=== PATIENT | male | born 1950 | race Hispanic/Latino ===

== ENCOUNTER 2021-11-14 10:33 | Observation (INO) | payer MEDICARE ==
--- NOTE | 2021-11-13 10:52 | Anesthesia Consultation ---
<ERVIN MUNOZ - Last Filed: 11/13/21 10:48> Anesthesia Consult and Med Hx Date of service: 11/13/21 - Airway Anesthetic Teeth Evaluation: Good ROM Head & Neck: Adequate (Limited ROM-rotation and extension.. without Pain. Cervical Fusion) Mental/Hyoid Distance: Adequate Mallampati Class: Class II Intubation Access Assessment: Good - Pulmonary Exam CTA: Yes - Cardiac Exam Cardiac Exam: RRR (holosystolic murmur noted. Echo report requested) - Pre-Operative Health Status ASA Pre-Surgery Classification: ASA3 Proposed Anesthetic Plan: General - Pre-Anesthesia Comment Pre-Anesthesia Comments: Patient requests GA doesnot want regional - Pulmonary Hx Smoking: No Hx Sleep Apnea: No (COSME PRE SCREEN HIGH RISK) - Cardiovascular System Hx Hypertension: Yes (X 15 YRS) Hx Heart Murmur: Yes (NEGATIVE CARDIC WORKUP PER PT) - Central Nervous System Hx Back Pain: Yes (NECK AND BACK PAIN) Hx Psychiatric Problems: No - Hematic Hx Anemia: No - Other Systems Hx Cancer: No - Additional Comments Anesthesia Medical History Comments: history of post op nausea and vomiting <JENNI BASURTO - Last Filed: 11/14/21 11:25> Anesthesia Consult and Med Hx - Pre-Operative Health Status ASA Pre-Surgery Classification: ASA3 Proposed Anesthetic Plan: General - Additional Comments Anesthesia Medical History Comments: Examined in PAT 11/13/21 and immediately prior to procedure. Systolic murmur noted on cardiac exam. TTE 10/2020 notes mild w/ normal LV function. Patient is asymptomatic, has excellent functional capacity (bikes several miles at a time), and has no signs of decompensation.
[2021-11-13 11:17] LABS: Hematocrit 40.1 % (35.5-45.6); Hemoglobin 13.8 gm/dl (11.8-15.2); Mean Corpuscular HGB Conc 35 % (32-34); Mean Corpuscular Volume 99 fl (84-94); Platelet Count 151 K/mm3 (140-440); Red Blood Count 4.05 M/mm3 (3.65-5.03); Red Cell Distribution Width 12.7 % (13.2-15.2)
[2021-11-13 11:32] LABS: Alanine Aminotransferase 26 units/L (7-56); Albumin 4.3 g/dL (3.9-5); BUN/Creatinine Ratio 29; Blood Urea Nitrogen 26 mg/dL (9-20); Calcium 9.6 mg/dL (8.4-10.2); Hemolysis Index 20
[~2021-11-14 10:33] MED LIST: BACTERIOSTATIC SODIUM CHLORIDE 0.9% 30 ML VIAL INFILTRATI ONE; LACTATED RINGERS 1,000 ML IV SCH; MIDAZOLAM 2 MG/2 ML INJ IV NR; SCOPOLAMINE TRANSDERMAL PATCH 72 HR TD NR
[2021-11-14] MEDS ORDERED: HYDROcodone/ACETAMINOPHEN 5-325 MG TAB PO PRN (11:29)
[2021-11-14] MEDS ORDERED: ONDANSETRON 4 MG/2 ML INJ IV PRN ×2 (11:29→15:00)
[2021-11-14] MEDS ORDERED: HYDROmorphone 1 MG/1 ML INJ IV PRN (11:29)
--- NOTE | 2021-11-14 11:29 | Anesthesia Day of Surgery ---
Anesthesia Day of Surgery - Day of Surgery Patient Examined: Yes Patient H&P Reviewed: Yes Patient is NPO: Yes Beta Blockers: Yes
[2021-11-14] MEDS ORDERED: SODIUM CHLORIDE 0.9% 500 ML 500 ML IV SCH (11:51)
[2021-11-14] MEDS ORDERED: propofoL 200 MG/20 ML VIAL IV ONE (11:53)
[2021-11-14] MEDS ORDERED: LIDOCAINE PF 100 MG/5 ML (CARDIAC SYRINGE) IV ONE (11:53)
[2021-11-14] MEDS ORDERED: dexAMETHasone 20 MG/5 ML VIAL ONE (11:53)
[2021-11-14] MEDS ORDERED: fentaNYL 100 MCG/2 ML INJ ONE (11:53)
[2021-11-14] MEDS ORDERED: ONDANSETRON 4 MG/2 ML INJ ONE (11:53)
[2021-11-14] MEDS ORDERED: ceFAZolin/Water 2 GM/20 ML 2 GM/20 ML SYRINGE IV NR (12:00)
[2021-11-14] MEDS ORDERED: SUGAMMADEX SODIUM 200 MG/2 ML VIAL IV ONE (12:54)
[2021-11-14] MEDS ORDERED: ePHEDrine SULFATE 50 MG/1 ML INJ ONE (13:01)
--- NOTE | 2021-11-14 13:52 | Post Operative Note ---
Date of procedure: 11/14/21 Pre-op diagnosis: Read Post-op diagnosis: same Findings: debis in pockets Procedure: turp Anesthesia: GETA Surgeon: JERRY ARREAGA Estimated blood loss: minimal Pathology: list (chips) Specimen disposition: to lab Condition: stable Disposition: PACU
--- NOTE | 2021-11-14 14:12 | Operative Report ---
DATE OF SURGERY: 11/14/2021 PREOPERATIVE DIAGNOSES: Severe irritative and obstructive symptoms with pockets in the urethra. POSTOPERATIVE DIAGNOSES: Severe irritative and obstructive symptoms with pockets in the urethra. PROCEDURES: Cystoscopy, resection of the prostate. SURGEON: Dr. Bi Spivey. ANESTHESIA: General. FINDINGS: This is a gentleman post Rezu who formed 2 Pockets one on each side within the prostate. We tried to treat them as an outpatient, but could not get them out. He now presents for resection. I talked to another expert on Rezum and that was suggested. He has mostly irritative symptoms. Prostate ultrasound showed a small gland with no abscess. DESCRIPTION OF PROCEDURE: The patient was brought to operating room and placed on the operating table. Following induction of anesthesia, placed in lithotomy position, prepped and draped in usual sterile fashion. Pictures were shown. The area was noted. This was resected. Minimal amount of resection was required. The bladder neck was opened. He had 2+ trabeculation. The patient tolerated the procedure well. Irrigation was clear. No significant bleeding. Minimal blood loss brought to recovery room with a 3-way 22 catheter, which was clear and in stable condition. TID: [id number] RECEIPT: [id number] JONATHAN
--- NOTE | 2021-11-14 14:53 | Post Anesthesia Evaluation ---
- Post Anesthesia Evaluation Patient Participated: Yes Airway Patent: Yes Stable Respiratory Function: Yes Nausea/Vomiting: No Temp > 96.8F: Yes Pain Manageable: Yes Adequeate Hydration: Yes Anesthesia Complications: No
[2021-11-14] MEDS ORDERED: oxyCODONE /ACETAMINOPHEN 5-325MG TAB PO PRN (15:00)
[2021-11-14] MEDS ORDERED: ACETAMINOPHEN 325 MG TAB PO PRN (15:00)
[2021-11-14] MEDS ORDERED: NALOXONE 0.4 MG/1 ML INJ IV PRN (15:00)
[2021-11-14] MEDS ORDERED: SODIUM CHLORIDE 0.9% IRRIG SOLN 2000 ML IR ONE (15:48)
[2021-11-14] MEDS ORDERED: MANNITOL/SORBITOL SOLUTION 3,000 ML IRRIG.SOLN IR ONE (15:49)
--- NOTE | 2021-11-14 17:08 | XRay Report ---
ABDOMEN 1 VIEW 11/14/2021 3:34 PM INDICATION / CLINICAL INFORMATION: ENLARGED PROSTATE. COMPARISON: None available. FINDINGS: 6 seconds of fluoroscopy time 3 urinary catheter placement. 10 mm Omnipaque 300. 3 images. Signer Name: Rafael Price MD Signed: 11/14/2021 5:04 PM Workstation Name: [id number]
[2021-11-14] MEDS: ceFAZolin/NS 1 GM/50 ML 1 GM/50 ML BAG IV SCH (21:46)
[2021-11-15] MEDS: SODIUM CHLORIDE 0.9% IRRIG SOLN 2000 ML IR SCH ×2 (00:32→04:17)
[2021-11-15 04:03] VITALS: BP 110/51
[2021-11-15] MEDS: ceFAZolin/NS 1 GM/50 ML 1 GM/50 ML BAG IV SCH (04:09)
--- NOTE | 2021-11-15 10:50 | Discharge Summary ---
Short Stay Discharge Plan Activity: other (no straining ) Weight Bearing Status: Full Weight Bearing Diet: low fat, low cholesterol, low salt Follow up with: JAYLIN HICKMAN MD [Primary Care Provider] - 7 Days JERRY ARREAGA MD [Staff Physician] - 14 Days
--- NOTE | 2021-11-15 10:50 | Progress Note ---
Assessment and Plan urine clear cath out Subjective Date of service: 11/15/21 Principal diagnosis: delgado Objective - Constitutional Vitals: Vital Signs - 12hr 11/15/21 11/15/21 04:00 10:00 Temperature 97.9 F Pulse Rate 57 L Respiratory 18 Rate Blood Pressure 110/51 [Left] O2 Sat by Pulse 98 100 Oximetry General appearance: Present: no acute distress - Neck Neck: supple - Respiratory Respiratory effort: normal Extremities: no ischemia - Gastrointestinal General gastrointestinal: Present: soft, non-tender - Labs CBC & Chem 7: 11/13/21 00:01 11/13/21 00:01 Labs: Abnormal lab results 11/14/21 Range/Units 06:00 Crossmatch See Detail Medications & Allergies - Medications Allergies/Adverse Reactions: Allergies Sulfa (Sulfonamide Antibiotics) Adverse Reaction (Verified 11/06/21 14:54) Nausea Home Medications: Home Medications Medication Instructions Recorded Confirmed Last Taken Type Diclofenac Dr [Voltaren Dr] 75 mg PO DAILY 11/06/21 11/14/21 11/03/21 History Rosuvastatin Calcium [Crestor] 10 mg PO DAILY 11/06/21 11/06/21 11/13/21 History Tamsulosin [Flomax] 0.4 mg PO QDAY 11/06/21 11/06/21 11/13/21 History atenoloL [Tenormin] 25 mg PO DAILY 11/06/21 11/14/21 11/14/21 08:30 History Active Medications: Generic Name Dose Route Start Last Admin Trade Name Freq PRN Reason Stop Dose Admin Acetaminophen 650 mg 11/14/21 15:00 Acetaminophen 325 Mg Tab PO Q4H PRN Pain, Mild (1-3)/Fever > 100.5 Sodium Chloride 500 mls @ 0 mls/hr 11/14/21 11:51 Nacl 0.9% 500 Ml IV ONCE CECILIA As Directed Cefazolin Sodium 1 gm in 50 mls @ 100 mls/hr 11/14/21 20:00 11/15/21 04:09 Ancef/Ns 1 Gm/50 Ml IV 11/15/21 12:29 100 mls/hr Q8H CECILIA Administration Protocol Naloxone HCl 0.1 mg 11/14/21 15:00 Naloxone 0.4 Mg/1 Ml Inj IV Q2MIN PRN Res Rate </= 8 or 02 SAT < 92% Ondansetron HCl 4 mg 11/14/21 15:00 Ondansetron 4 Mg/2 Ml Inj IV Q8H PRN Nausea And Vomiting Oxycodone/Acetaminophen 2 tab 11/14/21 15:00 11/14/21 20:13 Oxycodone /Acetaminophen 5-325mg Tab PO 2 tab Q6H PRN Administration Pain, Moderate (4-6) Sodium Chloride 2,000 ml 11/14/21 14:00 11/15/21 04:17 Sodium Chloride 0.9% Irrig Soln 2000 Ml IR 2,000 ml DIRECT CECILIA Administration
--- NOTE | 2021-11-15 14:09 | Post Anesthesia Evaluation ---
- Post Anesthesia Evaluation Other Comments: Patient was discharged this morning is good condition
== END 2021-11-15 12:29 | disposition home or self-care (01) ==
LOC: OR 10:33 → 3A 13:52
PROVIDERS: ADMIT Urology; ATTEND Urology
DX: N40.1 Benign prostatic hyperplasia with lower urinary tract symptoms (principal); Z20.822 Contact with and (suspected) exposure to COVID-19; N13.8 Other obstructive and reflux uropathy; Z79.899 Other long term (current) drug therapy; Z98.890 Other specified postprocedural states
CPT/HCPCS: 36415; 52601; 74018; 80053; 85027; 86850; 86900; 86901; 86920; 88305; 96365; 96366; G0378; J0690; J1100; J1170; J2001; J2250; J2405; J2704; J3010; J3490; J7120; Q9967; U0003